=== PATIENT | male | born 1985 | race Caucasian/White ===

== ENCOUNTER 2018-10-14 01:33 | Emergency (ER) | payer OTHER ==
[2018-10-14 01:38] VITALS: BP 142/83
[2018-10-14] MEDS: Ketorolac 60 MG/2 ML SDV IM ONE (02:24)
--- NOTE | 2018-10-14 02:31 | EDM.PDOC ---
ED HPI GENERAL MEDICAL PROBLEM - General Chief Complaint: Upper Extremity Injury/Pain Stated Complaint: fall, right shoulder pain Time Seen by Provider: 10/14/18 02:05 Source of Information: Reports: Patient History Limitations: Reports: No Limitations - History of Present Illness INITIAL COMMENTS - FREE TEXT/NARRATIVE: Patient fell on ice at [employer]. Landed directly on right lateral shoulder. Pain felt at time of injury in that same area. Denies other injuries. Uncertain if he hit his head. No LOC or head/neck pain complaint. Denies hip/leg pain. Entire right arm/hand feels a bit "tingly". No weakness reported. Right Shoulder Pain Score (Numeric/FACES): 8 - Related Data Allergies Allergy/AdvReac Type Severity Reaction Status Date / Time No Known Allergies Allergy Verified 10/14/18 01:38 Home Meds: Home Meds . [No Known Home Meds] 10/14/18 [History] Past Medical History Cardiovascular History: Reports: None Respiratory History: Reports: None Gastrointestinal History: Reports: Other (See Below) Other Gastrointestinal History: Appendicitis with surgery as below Genitourinary History: Reports: None Musculoskeletal History: Reports: Fracture Neurological History: Reports: None Psychiatric History: Reports: None Endocrine/Metabolic History: Reports: None Hematologic History: Reports: None Immunologic History: Reports: None Oncologic (Cancer) History: Reports: None Dermatologic History: Reports: None - Infectious Disease History Infectious Disease History: Reports: Chicken Pox - Past Surgical History Head Surgeries/Procedures: Reports: None HEENT Surgical History: Reports: Oral Surgery Cardiovascular Surgical History: Reports: None Respiratory Surgical History: Reports: None Male Surgical History: Reports: Circumcision Endocrine Surgical History: Reports: None Neurological Surgical History: Reports: None Musculoskeletal Surgical History: Reports: ORIF Oncologic Surgical History: Reports: None Dermatological Surgical History: Reports: None - Past Imaging History Past Imaging History: Reports: CAT Scan Social & Family History - Tobacco Use Smoking Status *Q: Never Smoker Second Hand Smoke Exposure: No - Caffeine Use Caffeine Use: Reports: Coffee, Soda - Recreational Drug Use Recreational Drug Use: No - Living Situation & Occupation Living situation: Reports: Single, with Significant Other Occupation: Employed Review of Systems - Review of Systems Review Of Systems: See Below Constitutional: Reports: No Symptoms Eyes: Reports: No Symptoms Ears: Reports: No Symptoms Nose: Reports: No Symptoms Mouth/Throat: Reports: No Symptoms Respiratory: Reports: No Symptoms. Denies: Pleuritic Chest Pain Cardiovascular: Reports: No Symptoms. Denies: Chest Pain GI/Abdominal: Reports: Nausea (mild). Denies: Abdominal Pain, Constipation, Diarrhea, Vomiting Genitourinary: Reports: No Symptoms Musculoskeletal: Reports: Muscle Pain (around right shoulder), Other (right shoulder pain). Denies: Neck Pain, Back Pain, Hand Pain, Leg Pain, Foot Pain Skin: Reports: No Symptoms Neurological: Reports: No Symptoms Psychiatric: Reports: No Symptoms ED EXAM, GENERAL - Physical Exam Exam: See Below Exam Limited By: No Limitations General Appearance: Alert, WD/WN, Mild Distress (Guarding right arm/shoulder) Eye Exam: Bilateral Eye: EOMI, PERRL Ears: Normal External Exam Nose: No: Nasal Deformity, Nasal Swelling Throat/Mouth: Normal Lips, Normal Voice, No Airway Compromise Head: Atraumatic, Normocephalic Neck: Normal Inspection, Supple, Non-Tender, Full Range of Motion Respiratory/Chest: No Respiratory Distress, Lungs Clear, Normal Breath Sounds, No Accessory Muscle Use, Chest Non-Tender Cardiovascular: Normal Peripheral Pulses, Regular Rate, Rhythm, No Murmur Peripheral Pulses: 2+: Radial (R) GI/Abdominal: Soft, Non-Tender (Male) Exam: Deferred Rectal (Males) Exam: Deferred Back Exam: No: CVA Tenderness (L), CVA Tenderness (R), Muscle Spasm, Paraspinal Tenderness, Vertebral Tenderness Extremities: Normal Capillary Refill, Limited Range of Motion (Right shoulder. Able to move right arm anteriorly, laterally, posteriorly but with pain limitation in right shoulder area. Able to move well at elbow/wrist/hand on affected side. Tender over anterior/lateral shoulder area. No crepitus/ deformity noted) Neurological: Alert, Oriented, CN II-XII Intact, Normal Cognition, Normal Gait Psychiatric: Anxious (mild) Skin Exam: Warm, Dry, Intact, Normal Color. No: Ecchymosis, Erythema Course - Vital Signs Last Recorded V/S: Last Vital Signs Temp 36.6 C 10/14/18 01:34 Pulse 62 10/14/18 01:34 Resp 20 10/14/18 01:34 BP 142/83 H 10/14/18 01:34 Pulse Ox 99 01/30/19 01:34 - Orders/Labs/Meds Orders: Active Orders 24 hr Category Date Time Status Shoulder Comp Rt [CR] Stat Exams 10/14/18 01:40 Taken Meds: Medications Discontinued Medications Generic Name Dose Route Start Last Admin Trade Name Minoo PRN Reason Stop Dose Admin Ketorolac Tromethamine 60 mg 10/14/18 02:20 10/14/18 02:24 Toradol IM 10/14/18 02:21 60 mg ONETIME ONE Administration - Radiology Interpretation Free Text/Narrative:: Xray of right shoulder did not show obvious fracture or dislocation. Pending formal Radiology review. - Re-Assessments/Exams Free Text/Narrative Re-Assessment/Exam: 10/14/18 02:34 Patient appears to have shoulder/soft tissue contusion. Cannot rule out ligament injury in shoulder. No obvious signs of separation noted when comparing current films to previous ones on file. Toradol and Zofran given. Suspect mild nausea patient is experiencing is from the shoulder discomfort. No sign of head contusion/tenderness noted. Shoulder took main impact of fall based on patient's description of incident and area of pain. Will place patient in shoulder sling. Tramadol bottle from ER sent home with patient to help with pain. To follow up at Ortho walk-in clinic if it is open (may be closed given current weather issues), and Friday if he is unable to go . He can be rechecked at that time and additional follow up planned at that visit. Departure - Departure Time of Disposition: 02:45 Disposition: Home, Self-Care 01 Condition: Good Clinical Impression: Right shoulder injury Qualifiers: Encounter type: initial encounter Qualified Code(s): S49.91XA - Unspecified injury of right shoulder and upper arm, initial encounter - Discharge Information *PRESCRIPTION DRUG MONITORING PROGRAM REVIEWED*: Not Applicable *COPY OF PRESCRIPTION DRUG MONITORING REPORT IN PATIENT [place]: Not Applicable Instructions: Shoulder Pain, [id number] Additional Instructions: Take Tramadol as directed for pain. OK to take Ibuprofen or Tylenol with this medication. Wear sling for comfort and protection. OK to ice shoulder frequently as discussed in ER. Both [place] and [facility] have walk-in clinics in [place] for Ortho. Call their facilities tomorrow and see if they closed them due to the severe cold weather. Ideally you follow up with them for re-examination and further planning /restrictions as needed. If for some reason the clinics are closed, then follow up Friday. Your work excuse will in 72 hours. Follow up otherwise as needed if you have problems. - My Orders Last 24 Hours: My Active Orders 10/14/18 01:40 Shoulder Comp Rt [CR] Stat - Assessment/Plan Last 24 Hours: My Active Orders 10/14/18 01:40 Shoulder Comp Rt [CR] Stat
[2018-10-14] MEDS: Ondansetron 4 MG Tab.DIS PO ONE (02:36)
== END 2018-10-14 02:59 | disposition home or self-care (01) ==
LOC: LL.ED 01:33
DX: S49.91XA Unspecified injury of right shoulder and upper arm, initial encounter (principal); Z98.890 Other specified postprocedural states; W00.0XXA Fall on same level due to ice and snow, initial encounter
CPT/HCPCS: 73030-RT; 96372; 99283; A9270-GY; J1885